=== PATIENT | female | born 1980 | race Two or more races ===

== ENCOUNTER 2018-08-07 18:29 | Emergency (ER) | payer SELFPAY ==
[~2018-08-07] VITALS: Ht 160 cm; Wt 70.3 kg
[~2018-08-07 18:29] MED LIST: MULVITMINE PO
[2018-08-07 18:51] LABS: Source, Urine Clean Catch
[2018-08-07 18:56] LABS: Appearance, Urine Clear (Clear); Bilirubin, Urine Neg (Neg); Blood, Urine 5+ (Neg); Color, Urine Yellow (P-Yellow); Glucose Qualitative, Urine Neg (Neg); Ketones, Urine Neg (Neg); Leukocyte Esterase, Urine 3+ (Neg); Nitrite, Urine Neg (Neg); Protein, Urine 2+ (Neg); Specific Gravity, Urine 1.005 (1.003-1.022); Urobilinogen, Urine NORM (Normal)
[2018-08-07 19:55] LABS: White Blood Cells, Urine 50-100 /hpf (0-5)
[2018-08-07 19:56] LABS: Bacteria Mod /hpf; Squamous Epithelial Cells Many /hpf (Few)
[2018-08-07] MEDS ORDERED: Diflucan150 MG PO (20:11)
[2018-08-07] MEDS ORDERED: CEPH500 PO (20:11)
== END 2018-08-07 20:28 | disposition home or self-care (01) ==
LOC: ER 18:29
PROVIDERS: Physician Assistant
DX: N39.0 Urinary tract infection, site not specified (principal); B37.9 Candidiasis, unspecified; Z79.899 Other long term (current) drug therapy
CPT/HCPCS: 81001; 81025; 87077; 87086; 87186; 99283

== ENCOUNTER → 2019-05-30 | Outpatient (CLI) | payer SELFPAY ==
[~2019-05-30] MED LIST changes: +CEPH500 PO; +Diflucan150 MG PO
== END | disposition home or self-care (01) ==
LOC: LAB 17:15 → LAB SHORT 17:15 → LAB FUT 05-30 16:40
DX: R30.9 Painful micturition, unspecified (principal)
CPT/HCPCS: 87077; 87086; 87186

== ENCOUNTER → 2020-05-11 | Outpatient (CLI) | payer SELFPAY | END | disposition home or self-care (01) | LOC: LAB SHORT 11:42 → LAB UCHC 11:42 | DX: N39.0 Urinary tract infection, site not specified (principal) | CPT/HCPCS: 87077; 87086; 87186 ==

== ENCOUNTER → 2021-04-18 | Outpatient (CLI) | payer OTHER ==
[2021-04-19 13:08] LABS: HPV 16 Negative (Negative); HPV 18 Negative (Negative); HPV OTHER HR TYPES Negative (Negative)
== END | disposition home or self-care (01) ==
LOC: LAB SHORT 10:00 → LAB 10:00
PROVIDERS: Family Medicine
DX: Z12.4 Encounter for screening for malignant neoplasm of cervix (principal)
CPT/HCPCS: 87624; G0123

== ENCOUNTER → 2021-11-01 | Outpatient (CLI) | payer OTHER ==
[2021-11-02 10:01] LABS: Candida species (DNA Probe) Negative (NEGATIVE); G. vaginalis (DNA Probe) Positive (NEGATIVE); T. vaginalis (DNA Probe) Negative (NEGATIVE)
== END | disposition home or self-care (01) ==
LOC: LAB SHORT 10:45 → LAB 10:45
PROVIDERS: Nurse Practitioner
DX: N89.8 Other specified noninflammatory disorders of vagina (principal); L29.3 Anogenital pruritus, unspecified; R30.9 Painful micturition, unspecified; R82.998 Other abnormal findings in urine
CPT/HCPCS: 87086; 87480; 87510; 87660

== ENCOUNTER → 2022-02-21 | Outpatient (CLI) | payer OTHER ==
[2022-02-22 10:46] LABS: Candida species (DNA Probe) Negative (NEGATIVE); G. vaginalis (DNA Probe) Negative (NEGATIVE); T. vaginalis (DNA Probe) Negative (NEGATIVE)
[2022-02-23 01:07] LABS: CHLAMYDIA TRACHOMATIS, NAA Negative (Negative)
== END ==
LOC: LAB SHORT 13:57
PROVIDERS: Family Medicine Adult Medicine
DX: R30.9 Painful micturition, unspecified (principal)
CPT/HCPCS: 87086; 87480; 87491; 87510; 87591; 87660

== ENCOUNTER → 2023-01-17 | Outpatient (CLI) | payer OTHER | LOC: LAB SHORT 14:45 → LAB 14:45 → PLD 14:45 | DX: N85.00 Endometrial hyperplasia, unspecified (principal) | CPT/HCPCS: 88305 ==

== ENCOUNTER → 2023-07-11 | Outpatient (CLI) | payer OTHER | LOC: LAB SHORT 14:26 → LAB 14:26 | DX: N39.0 Urinary tract infection, site not specified (principal); R30.0 Dysuria | CPT/HCPCS: 87086 ==

== ENCOUNTER → 2024-05-20 | Outpatient (CLI) | payer OTHER | END | disposition home or self-care (01) | LOC: LAB SHORT 19:01 → LAB 19:01 | DX: R30.0 Dysuria (principal) | CPT/HCPCS: 87086 ==

== ENCOUNTER 2024-07-25 08:01 | Day surgery (SDC) | payer OTHER ==
[~2024-07-25] VITALS: Ht 160 cm; Wt 76.0 kg
[2024-07-25] VITALS (11 sets, daily range): BP systolic 95–116; BP diastolic 60–73
[~2024-07-25 08:01] MED LIST changes: +MACRODANTIN100 M1 PO
[2024-07-25] MEDS ORDERED: CeFAZolin Sodium 2,000 MG in NS 100 ML IV SCH (08:25)
[2024-07-25] MEDS ORDERED: Lactated Ringer's 1,000 ML IV SCH (08:25)
[2024-07-25] MEDS ORDERED: PRENATAL TABLE1 EAC2 PO (08:27)
[2024-07-25] MEDS ORDERED: Vitamin D1000 UNI1 PO (08:28)
[2024-07-25] MEDS ORDERED: COLLAGEN 15001 EACH PO (08:28)
[2024-07-25] MEDS ORDERED: B-12500 MC2 PO (08:28)
[2024-07-25] MEDS ORDERED: Bupivacaine 0.5% HCl 5 MG/ML 30MLVIAL ONE (08:31)
[2024-07-25] MEDS ORDERED: Midazolam HCl 1MG / ML 2ML Vial ONE (08:55)
[2024-07-25] MEDS ORDERED: Midazolam HCl 1MG / ML 2ML Vial IV ONE (08:55)
[2024-07-25] MEDS ORDERED: FentaNYL Citrate 50 MCG/ML 2 ML Injection ONE ×2 (09:10→11:21)
[2024-07-25] MEDS ORDERED: propofoL 20 ML IV ONE (09:10)
[2024-07-25] MEDS ORDERED: Phenylephrine HCl 10mg/ml 1 ml Vial ONE (09:17)
[2024-07-25] MEDS ORDERED: Glycopyrrolate 0.2 MG/ML 5ML VIAL ONE ×2 (09:18→10:42)
[2024-07-25] MEDS ORDERED: Dexamethasone Sod Phos 10 MG/ML 1ML VIAL ONE (09:21)
[2024-07-25] MEDS ORDERED: Ondansetron HCl 2 MG / ML 2ML Vial ONE (09:21)
[2024-07-25] MEDS ORDERED: Ketorolac Tromethamine 30mg Vial ONE (10:41)
[2024-07-25] MEDS ORDERED: HYDROcodone 5-APAP 325 TAB PO PRN (11:45)
--- NOTE | 2024-07-25 12:36 | NUR ---
Patient up to Ambulate independently. Gait steady. Discharge instructions reviewed with patient. Patient verbalizes understanding. Copy given to patient to take home, [facility]. Patient States Post-Procedure ride home has been arranged. Discharged via wheelchair to private car for ride home. PT REPORTS PAIN TOLERABLE. INCISION C/D/I. PT BEEN TO BATHROOM WITH 'S ASSIST. PT REPORTS READY TO GO HOME. ICE SENT WITH PT.
== END 2024-07-25 12:36 | disposition home or self-care (01) ==
LOC: ORSCMMR 08:01 → ORD 08:30 → ORSCMMR 12:36
PROVIDERS: Surgery
PROC: 0HBU0ZX Excision of Left Breast, Open Approach, Diagnostic (ICD-10-PCS; principal; 2024-07-25 08:30)
DX: D24.2 Benign neoplasm of left breast (principal)
CPT/HCPCS: 76098; 88307; A9270; J0690; J1100; J1885; J2250; J2371; J2405; J2704; J3010; J7120

== ENCOUNTER → 2024-08-01 | Outpatient (CLI) | payer OTHER ==
[~2024-08-01] MED LIST changes: +B-12500 MC2 PO; +COLLAGEN 15001 EACH PO; +PRENATAL TABLE1 EAC2 PO; +Vitamin D1000 UNI1 PO
== END | disposition home or self-care (01) ==
LOC: LAB SHORT 18:48
DX: D24.1 Benign neoplasm of right breast (principal); N64.4 Mastodynia
CPT/HCPCS: 87081; 87147